=== PATIENT | female | born 1985 | race Caucasian/White ===

== ENCOUNTER 2018-03-25 11:44 | Emergency (ER) | payer OTHER, MEDICAID ==
[~2018-03-25] VITALS: Ht 162.6 cm; Wt 49.9 kg
[~2018-03-25 11:44] MED LIST: ABILIFY; AMBIEN; CLARITIN10 M2; EFFEXOR; FLEXERIL; HYDROCODON-ACE1 EAC7; KEFLEX500 MG PO; LYRICA; MORPHINE PATCH; PENICILLIN V P500 MG PO; PENICILLIN VK250 MG PO; PERCOCET 5-3251 EACH PO; ULTRAM 50MG TAB50 MG
[2018-03-25] MEDS ORDERED: IBUPROFEN 600600 M1 PO (12:11)
[2018-03-25] MEDS ORDERED: TYLENOL EXTRA500 MG PO (12:11)
[2018-03-25 12:37] LABS: ABSOLUTE EOSINOPHILS 0.1 thou/uL (0.0-0.7); ABSOLUTE LYMPHOCYTES 1.4 thou/uL (0.8-5.3); ABSOLUTE MONOCYTES 0.4 thou/uL (0.0-1.2); ABSOLUTE NEUTROPHILS 6.2 thou/uL (1.6-8.1); BASOPHILS 0.3 %; EOSINOPHILS 0.7 %; HEMATOCRIT 38.8 % (37.0-47.0); HEMOGLOBIN 13.5 gm/dL (12.0-15.0); LYMPHOCYTES 16.9 %; MCH 34.1 pg (26.0-34.0); MCHC 34.7 g/dL (28.0-37.0); MCV 98.1 fL (80.0-100.0); MONOCYTES 5.2 %; NUCLEATED RBCS 0 /100WBC; PLATELET COUNT* 235 thou/uL (150-400); POLYS 76.9 %; RBC 3.96 mil/uL (4.20-5.00); RDW-CV 13.4 % (10.5-14.5); WBC 8.1 thou/uL (4.0-11.0)
[2018-03-25 12:43] LABS: CALCIUM 9.4 mg/dL (8.5-10.1); CREATININE 0.8 mg/dL (0.6-1.3); POTASSIUM 4.1 mmol/L (3.5-5.1)
[2018-03-25] MEDS ORDERED: NABUMETONE 750750 M1 PO (14:07)
[2018-03-25] MEDS ORDERED: AUGMENTIN 875-1 EACH PO (14:07)
[2018-03-25] MEDS ORDERED: FLEXERIL PO (14:07)
[2018-03-25] MEDS ORDERED: ACETAMINOPHEN-1 EAC1 PO (14:12)
[2018-03-25 14:22] VITALS: BP 131/62
== END 2018-03-25 14:23 | disposition home or self-care (01) ==
LOC: M.ERS 11:44
PROVIDERS: Nurse Practitioner Family
DX: R59.1 Generalized enlarged lymph nodes (principal); M79.7 Fibromyalgia; F17.210 Nicotine dependence, cigarettes, uncomplicated; Z88.1 Allergy status to other antibiotic agents

== ENCOUNTER 2019-05-15 15:41 | Emergency (ER) | payer OTHER ==
[~2019-05-15] VITALS: Ht 162.6 cm; Wt 61.2 kg
[~2019-05-15 15:41] MED LIST changes: +ACETAMINOPHEN-1 EAC1 PO; +AUGMENTIN 875-1 EACH PO; +FLEXERIL PO; +IBUPROFEN 600600 M1 PO; +NABUMETONE 750750 M1 PO; +TYLENOL EXTRA500 MG PO
[2019-05-15] MEDS ORDERED: SUPER THERAVIT1 EACH PO (15:54)
[2019-05-15] MEDS ORDERED: IBUPROFEN 600600 M1 PO (16:43)
[2019-05-15] MEDS ORDERED: TYLENOL WITH CO1 TA1 PO (16:43)
[2019-05-15 17:03] VITALS: BP 139/40
== END 2019-05-15 17:04 | disposition home or self-care (01) ==
LOC: M.ERS 15:41
DX: S92.522A Displaced fracture of middle phalanx of left lesser toe(s), initial encounter for closed fracture (principal); M79.7 Fibromyalgia; Z88.8 Allergy status to other drugs, medicaments and biological substances; W22.8XXA Striking against or struck by other objects, initial encounter; Y92.89 Other specified places as the place of occurrence of the external cause; Y93.89 Activity, other specified; Y99.8 Other external cause status

== ENCOUNTER 2021-06-21 16:34 | Emergency (ER) | payer OTHER, MEDICAID ==
[~2021-06-21] VITALS: Ht 160 cm; Wt 52.2 kg
[~2021-06-21 16:34] MED LIST changes: +SUPER THERAVIT1 EACH PO; +TYLENOL WITH CO1 TA1 PO
[2021-06-21] MEDS ORDERED: MEDROLDOSEPACK PO (18:23)
[2021-06-21] MEDS ORDERED: FLEXERIL PO (18:23)
[2021-06-21 18:29] VITALS: BP 138/88
== END 2021-06-21 18:30 | disposition home or self-care (01) ==
LOC: M.ERS 16:34
DX: M25.511 Pain in right shoulder (principal); M53.3 Sacrococcygeal disorders, not elsewhere classified; M54.2 Cervicalgia; M79.7 Fibromyalgia; Z91.09 Other allergy status, other than to drugs and biological substances